=== PATIENT | male | born 1965 | race Caucasian/White ===

== ENCOUNTER 2023-03-23 15:21 | Emergency (ER) | payer OTHER ==
[~2023-03-23] VITALS: Ht 182.9 cm; Wt 112.5 kg
[2023-03-23 15:38] LABS: BASOPHILS 0.2 % (0-2); HEMATOCRIT 46.4 % (35.0-50.0); HEMOGLOBIN 15.9 g/dL (12.0-18.0); LYMPHOCYTES 9.9 % (24-44); MCH 31.7 (27-36); MCHC 34.4 g/dl (30-36); MCV 92.3 fl (81-99); MONOCYTES 10.7 % (0-12); NEUTROPHILS 79.2 % (39-80); PLATELET COUNT 252 K/uL (140-440); RBC 5.03 M/ul (4.3-5.7); RDW 14.4 (10.5-15.0)
[2023-03-23 15:55] LABS: ALBUMIN/GLOBULIN RATIO 0.59 (1.1-2.4); ANION GAP 15.2 (7-21); BILIRUBIN, TOTAL 0.9 ng/dL (0.2-1.0); BUN/CREATININE RATIO 15.74 (6.0-28.6); CALCIUM 9.3 mg/dL (8.5-10.1); CREATININE, SERUM 1.08 mg/dL (0.70-1.30); MAGNESIUM 2.3 mg/dL (1.8-2.4); POTASSIUM 4.2 mmol/L (3.5-5.1); PROTEIN, TOTAL 8.1 g/dL (6.4-8.2)
[2023-03-23 16:49] LABS: INFLUENZA B NAA NEGATIVE (NEGATIVE); RESPIRATORY SYNCYTIAL VIR NAA NEGATIVE (NEGATIVE)
[2023-03-23] MEDS ORDERED: LOW DOSE ASPIRI81 MG PO (17:16)
[2023-03-23] MEDS ORDERED: NITROGLYCERIN0.4 MG SL (17:16)
[2023-03-23 17:32] VITALS: BP 160/89
--- NOTE | 2023-03-24 05:51 | EKG ---
[facility] [address] [place] [address] Signed Sinus rhythm with premature atrial complexes Nonspecific ST and T wave abnormality Abnormal ECG No previous ECGs available Confirmed by ZULMA WALSH MD ([id number]) on 03/24/2023 5:50:58 AM Electronically Signed By: ZULMA WALSH 03/24/23 0551 PATIENT NAME: TALITA FREEMAN Electrocardiogram DATE OF : 61 PHYSICIAN: ZULMA WALSH REPORT #: [id number] REPORT IS CONFIDENTIAL AND NOT TO BE RELEASED WITHOUT AUTHORIZATION
== END 2023-03-23 17:25 | disposition home or self-care (01) ==
LOC: ED 15:21
PROVIDERS: Emergency Medicine
DX: R07.89 Other chest pain (principal); I20.9 Angina pectoris, unspecified; R05.3 Chronic cough; J44.9 Chronic obstructive pulmonary disease, unspecified; I10 Essential (primary) hypertension; Z87.891 Personal history of nicotine dependence; Z11.52 Encounter for screening for COVID-19
CPT/HCPCS: 36415; 71045; 80053; 83690; 83735; 84484; 85025; 85379; 87502; 93005; 93010; 99285-25; A9270; C9803; U0002